=== PATIENT | female | born 1935 | race African-American/Black ===

== ENCOUNTER 2017-08-15 09:44 | Emergency (ER) | payer OTHER ==
[~2017-08-15] VITALS: Ht 152.4 cm; Wt 56.7 kg
[~2017-08-15 09:44] MED LIST: BACTRIM DS TAB1 EACH PO; CENTRUM SILVER1 EAC6 PO; CHOLESTEROL MED PO; IBUPROFEN 600600 M1 PO; KEFLEX500 MG PO; MEDROLDOSEPACK PO; ZANTAC 150MG T150 MG PO
[2017-08-15] MEDS ORDERED: HYDROCODONE-AP1 EAC6 PO (10:04)
== END 2017-08-15 10:18 | disposition home or self-care (01) ==
LOC: ER 09:44
DX: S16.1XXA Strain of muscle, fascia and tendon at neck level, initial encounter (principal); R03.0 Elevated blood-pressure reading, without diagnosis of hypertension; K21.9 Gastro-esophageal reflux disease without esophagitis; E78.00 Pure hypercholesterolemia, unspecified; X58.XXXA Exposure to other specified factors, initial encounter; Y93.89 Activity, other specified; Y92.89 Other specified places as the place of occurrence of the external cause; Y99.8 Other external cause status

== ENCOUNTER 2018-10-02 12:38 | Emergency (ER) | payer OTHER ==
[~2018-10-02] VITALS: Ht 162.6 cm; Wt 54.4 kg
[~2018-10-02 12:38] MED LIST changes: +HYDROCODONE-AP1 EAC6 PO
[2018-10-02 14:56] LABS: HEMATOCRIT 39.7 % (37.0-47.0); HEMOGLOBIN 13.2 gm/dL (12.0-15.0); MCH 31.3 pg (26.0-34.0); MCHC 33.3 g/dL (28.0-37.0); MCV 94.2 fL (80.0-100.0); PLATELET COUNT 126 thou/uL (150-400); RBC 4.21 mil/uL (4.20-5.00); RDW 13.9 % (10.5-14.5); WBC 17.4 thou/uL (4.0-11.0)
[2018-10-02 15:07] LABS: CALCIUM 9.2 mg/dL (8.5-10.1); CREATININE 0.9 mg/dL (0.6-1.0); POTASSIUM 4.1 mmol/L (3.5-5.1)
[2018-10-02 15:12] LABS: ABSOLUTE NEUTROPHILS 2.1 thou/uL (1.4-8.2)
[2018-10-02 15:35] VITALS: BP 145/65
== END 2018-10-02 15:35 | disposition home or self-care (01) ==
LOC: ER 12:38
PROVIDERS: Physician Assistant
DX: E04.1 Nontoxic single thyroid nodule (principal); K21.9 Gastro-esophageal reflux disease without esophagitis; E78.00 Pure hypercholesterolemia, unspecified

== ENCOUNTER 2018-12-05 12:00 | Emergency (ER) | payer OTHER ==
[~2018-12-05] VITALS: Ht 154.9 cm; Wt 54.4 kg
[2018-12-05] MEDS ORDERED: AMLODIPINE-ATO1 EAC4 PO (12:09)
[2018-12-05] MEDS ORDERED: XALATAN2.5 ML OPHTHALMIC (12:09)
[2018-12-05 12:22] LABS: URINE BILIRUBIN NEGATIVE (Negative); URINE BLOOD TRACE (Negative); URINE CLARITY CLEAR; URINE COLOR YELLOW; URINE GLUCOSE-RANDOM* NEGATIVE (Negative); URINE KETONES NEGATIVE (Negative); URINE NITRITE-REFLEX NEGATIVE (Negative); URINE PROTEIN (DIPSTICK) NEGATIVE (Negative); URINE UROBILINOGEN 0.2 E.U./dl (0.2-1.0)
[2018-12-05 12:24] LABS: URINE LEUKOCYTES-REFLEX 1+ (Negative)
[2018-12-05 12:50] LABS: CASTS None Seen /LPF (None Seen); SQUAMOUS 0-3 Few /LPF (0-3); URINE WBC-REFLEX 0-5 Rare /HPF (0-5)
[2018-12-05 12:51] LABS: BACTERIA-REFLEX None Seen /HPF (None Seen); CRYSTALS None Seen /LPF (None Seen); URINE RBC 0-2 Rare /HPF (0-2)
[2018-12-05] MEDS ORDERED: KEFLEX500 M1 PO (13:13)
[2018-12-05 13:20] VITALS: BP 124/76
== END 2018-12-05 13:20 | disposition home or self-care (01) ==
LOC: ER 12:00
PROVIDERS: Emergency Medicine
DX: N39.0 Urinary tract infection, site not specified (principal); N90.89 Other specified noninflammatory disorders of vulva and perineum; K21.9 Gastro-esophageal reflux disease without esophagitis

== ENCOUNTER 2019-05-18 13:29 | Emergency (ER) | payer OTHER ==
[~2019-05-18] VITALS: Ht 160 cm; Wt 54.0 kg
[2019-05-18 13:29] VITALS: BP 148/51
[~2019-05-18 13:29] MED LIST changes: +AMLODIPINE-ATO1 EAC4 PO; +KEFLEX500 M1 PO; +XALATAN2.5 ML OPHTHALMIC
[2019-05-18] MEDS ORDERED: CLARITIN10 MG PO (14:07)
== END 2019-05-18 14:15 | disposition home or self-care (01) ==
LOC: ER 13:29
DX: R09.81 Nasal congestion (principal); K21.9 Gastro-esophageal reflux disease without esophagitis; E78.00 Pure hypercholesterolemia, unspecified